=== PATIENT | female | born 1995 | race Two or more races ===

== ENCOUNTER → 2021-01-12 06:07 | Outpatient (CLI) | payer OTHER | END | disposition home or self-care (01) | LOC: LAB 06:07 | PROVIDERS: ATTEND Obstetrics & Gynecology | DX: Z20.818 Contact with and (suspected) exposure to other bacterial communicable diseases (principal) ==

== ENCOUNTER 2021-01-12 06:20 | Day surgery (SDC) | payer OTHER | END 2021-01-12 17:15 | disposition home or self-care (01) | LOC: CIR.AMB 06:20 | PROVIDERS: ATTEND Obstetrics & Gynecology | DX: Z30.2 Encounter for sterilization (principal); Z20.822 Contact with and (suspected) exposure to COVID-19 ==